=== PATIENT | male | born 1935 | race Caucasian/White ===

== ENCOUNTER → 2018-09-04 | Day surgery (SDC) | payer MEDICARE, BC ==
--- NOTE | 2018-09-02 16:35 | Diagnostic Imaging Report ---
Frontal and lateral views of the chest. September 02, 2018 at 1405 HISTORY: PREOP COMPARISON: None available. DISCUSSION: Soft tissue attenuation partially limits sensitivity of the exam. Lungs: Low lung volumes result in bibasilar vascular crowding, accentuation of the pulmonary interstitial markings, central pulmonary vasculature, and the cardiac silhouette. Allowing for these limitations, the findings are as follows: A patchy peripheral opacity at the left lung base, approximately 2.2 cm. Pleura: No pleural effusion or pneumothorax. Heart and mediastinum: The cardiomediastinal silhouette appears unremarkable. Bones and soft tissues: Straightening of the normal thoracic kyphosis and mild multilevel degenerative disc changes. IMPRESSION: A nonspecific 2.2 cm left basilar peripheral opacity, differential considerations include scarring, atelectasis, or pneumonia in the appropriate setting. Recommend a short-term follow-up in 6-8 weeks to assess for stability versus resolution. Signed by: Dr. Leland Arteaga D.O., M.M.M. on 09/02/2018 4:31 PM
[~2018-09-04] MED LIST: AMITRIPTYLINE H25 MG PO; ATENOLOL50 MG PO; BLOOD PRESSURE MED PO; CEFTRIAXONE SOD 1 GM/NS 50 ML 50 ML IV ONE; CELEBREX200 MG PO; CHLORTHALIDONE25 MG PO; COMBIVENT RESPIM4 GM IH; DEXAMETHASONE SOD PHOS INJ 4 MG/ML VIAL ONE; FENTANYL CITRATE/PF 100MCG/2 ML INJ ONE; FUROSEMIDE INJ 10 MG/ML 4 ML VIAL ONE; GENTAMICIN 80MG/NS 100 ML 200 ML IV ONE; LEVOCETIRIZINE D5 MG PO; LIDOCAINE HCL 2% LOCAL INJ 5 ML SDV VIAL INJ ONE; MYRBETRIQ50 MG PO; OMEPRAZOLE40 MG PO; ONDANSETRON HCL INJ 2MG/ML 2ML 2 MG/ML VIAL ONE; PROPOFOL IV EMULSION 10 MG/ML 20 ML VIAL ONE; SEVOFLURANE INHAL SOLN 250 ML PEN BTL ONE; SIMVASTATIN20 MG PO
--- OUTSIDE RECORDS SUMMARY | 2018-09-04 07:07 | XMS REPORT ---
Author [facility] Address Unknown Phone Unavailable Care Team Providers Care Chief Revenue Officer Name Role Phone Bernie BRANCH Unavailable Unavailable Problems This patient has no known problems. Allergies, Adverse Reactions, Alerts This patient has no known allergies or adverse reactions. Medications This patient has no known medications. Results Test Description Test Time Test Comments Text Results Atomic Results Result Comments CHEST 2 VIEWS 2018-09-02 16:26:00 [place] [address] Patient Name: EVIN ALVA MR #: [id number] : 1935 Age/Sex: 83/M Req #: [id number] Adm Physician: Ordered by: FRANKI BRANCH MD Report #: [id number] Location: OR Room/Bed: Procedure: [id number] DX/CHEST 2 VIEWS Exam Date: 09/02/18 Exam Time: 1423 REPORT STATUS: Signed Frontal and lateral views of the chest. September 02, 2018 at 1405 HISTORY: PREOP COMPARISON: None available. DISCUSSION: Soft tissue attenuation partially limits sensitivity of the exam. Lungs: Low lung volumes result in bibasilar vascular crowding, accentuation of the pulmonary interstitial markings, central pulmonary vasculature, and the cardiac silhouette. Allowing for these limitations, the findings are as follows: A patchy peripheral opacity at the left lung base, approximately 2.2 cm. Pleura: No pleural effusion or pneumothorax. Heart and mediastinum: The cardiomediastinal silhouette appears unremarkable. Bones and soft tissues: Straightening of the normal thoracic kyphosis and mild multilevel degenerative disc changes. IMPRESSION: A nonspecific 2.2 cm left basilar peripheral opacity, differential considerations include scarring, atelectasis, or pneumonia in the appropriate setting. Recommend a short-term follow-up in 6-8 weeks to assess for stability versus resolution. Signed by: Dr. Marlon Arteaga D.O., M.M.M. on 09/02/2018 4:31 PM Dictated By: MARLON ARTEAGA DO 1631 Transcribed By: OSCAR on 09/02/18 1631 COPY TO: FRANKI BRANCH MD
--- OUTSIDE RECORDS SUMMARY | 2018-09-04 07:07 | XMS REPORT | Clinical Summary ---
Author Author [facility] Address Unknown Phone Unavailable Care Team Providers Care [facility] [employer] Name Role Phone Jane Arrieta MD PCP Allergies Comments Active Allergy Reactions Severity Noted Date No Known Drug Allergies 11/05/2015 Medications End Date Status Medication Sig Dispensed Refills Start Date Active DULoxetine (CYMBALTA) 60 TAKE 1 90 capsule 1 MG capsuleIndications: CAPSULE BY 8 Depression MOUTH DAILY Active buPROPion SR (WELLBUTRIN TAKE 1 TABLET 90 tablet 0 SR) 100 MG 12 hr BY MOUTH AT 8 tabletIndications: BEDTIME Depression Active chlorthalidone (HYGROTEN) TAKE 1 TABLET 90 tablet 0 25 MG tabletIndications: BY MOUTH 8 Essential hypertension DAILY 06/04/2019 Active furosemide (LASIX) 20 mg Take 1 tablet 60 tablet 11 tabletIndications: Pedal (20 mg total) 8 edema by mouth 2 (two) times a day. Active fluticasone (FLONASE 2 sprays (100 15.8 mL 0 ALLERGY RELIEF) 50 mcg total) by 8 mcg/actuation nasal Each Nare sprayIndications: route daily. Seasonal allergic rhinitis due to pollen Active omeprazole (PriLOSEC) 20 Take 1 90 capsule 0 MG capsuleIndications: capsule (20 8 Gastroesophageal reflux mg total) by disease, esophagitis mouth daily. presence not specified Active atenolol (TENORMIN) 25 MG Take 1 tablet 90 tablet 3 tabletIndications: (25 mg total) 8 Essential hypertension by mouth daily. Active celecoxib (CeleBREX) 100 TAKE ONE 60 capsule 0 MG capsule CAPSULE BY 8 MOUTH TWICE A DAY Active simvastatin (ZOCOR) 20 MG TAKE 1 TABLET 90 tablet 1 tabletIndications: BY MOUTH 9 Hypercholesteremia NIGHTLY Active amitriptyline (ELAVIL) 25 0 MG tablet 9 03/01/2018 Discontinued chlorthalidone (HYGROTEN) Take 1 tablet 90 tablet 1 25 MG tabletIndications: by mouth 7 Essential hypertension daily 01/15/2018 Discontinued DULoxetine (CYMBALTA) 60 TAKE 1 90 capsule 1 MG capsuleIndications: CAPSULE BY 7 Depression MOUTH DAILY 03/01/2018 Discontinued doxazosin (CARDURA) 4 MG Take 1 tablet 90 tablet 1 tabletIndications: by mouth 7 Essential hypertension daily 03/01/2018 Discontinued omeprazole (PriLOSEC) 20 TAKE 1 90 capsule 1 MG capsuleIndications: CAPSULE BY 7 Gastroesophageal reflux MOUTH DAILY disease, esophagitis presence not specified 03/01/2018 Discontinued buPROPion SR (WELLBUTRIN TAKE 1 TABLET 90 tablet 1 SR) 100 MG 12 hr BY MOUTH AT 7 tabletIndications: BEDTIME Depression 11/16/2017 Discontinued simvastatin (ZOCOR) 20 MG TAKE 1 TABLET 90 tablet 1 tabletIndications: BY MOUTH 7 Hypercholesteremia NIGHTLY 10/17/2017 Discontinued meloxicam (MOBIC) 15 mg TAKE 1 TABLET 90 tablet 1 tabletIndications: BY MOUTH 7 Arthritis DAILY 03/01/2018 Discontinued atenolol (TENORMIN) 25 MG TAKE 1 TABLET 90 tablet 1 tabletIndications: BY MOUTH 7 Essential hypertension DAILY 06/04/2018 Discontinued meloxicam (MOBIC) 15 mg TAKE 1 TABLET 90 tablet 1 tabletIndications: BY MOUTH 8 Arthritis DAILY 08/23/2018 Discontinued simvastatin (ZOCOR) 20 MG TAKE 1 TABLET 90 tablet 1 tabletIndications: BY MOUTH 8 Hypercholesteremia NIGHTLY 06/04/2018 Discontinued doxazosin (CARDURA) 4 MG TAKE 1 TABLET 90 tablet 0 tabletIndications: BY MOUTH 8 Essential hypertension DAILY 07/30/2018 Discontinued omeprazole (PriLOSEC) 20 TAKE 1 90 capsule 0 MG capsuleIndications: CAPSULE BY 8 Gastroesophageal reflux MOUTH DAILY disease, esophagitis presence not specified 07/30/2018 Discontinued atenolol (TENORMIN) 25 MG TAKE 1 TABLET 90 tablet 0 tabletIndications: BY MOUTH 8 Essential hypertension DAILY 07/04/2018 mirabegron (MYRBETRIQ) 50 Take 1 tablet 30 tablet 3 mg tablet extended (50 mg total) 8 release 24 hrIndications: by mouth Urge incontinence daily for 30 days. 08/09/2018 Discontinued celecoxib (CeleBREX) 100 Take 1 60 capsule 0 MG capsule capsule (100 8 mg total) by mouth 2 (two) times a day for 30 days. Active Problems Problem Noted Date Benign prostatic hyperplasia with urinary obstruction 11/05/2015 Overview: Benign Prostatic Hypertrophy with Outflow Obstruction Bilateral hearing loss 11/05/2015 Chronic back pain 11/05/2015 Hypercholesteremia 11/05/2015 Systolic essential hypertension 11/05/2015 Vertigo 11/05/2015 Vitreous degeneration 07/25/2012 Pseudophakia 07/25/2012 Epiretinal membrane 07/25/2012 Encounters Care Team Description Date Type Specialty Kannan Nielsen MD Abnormal liver function test (Primary Dx); NAFLD (nonalcoholic fatty liver disease); Family history of colon cancer; Gastroesophageal reflux disease without esophagitis; Morbid obesity (HCC); Metabolic syndrome 09/03/2018 Office Visit Gastroenterology John Christie MD Hypercholesteremia 08/23/2018 Refill Family Medicine Alexandre Branch MD Elevated prostate specific antigen (PSA); Enlarged prostate with urinary obstruction; Weak urinary stream 08/22/2018 Hospital Radiology Encounter Baylee Russo PA 08/09/2018 Refill Family Medicine Alexandre Branch MD Elevated prostate specific antigen (PSA) (Primary Dx); Enlarged prostate with urinary obstruction; Weak urinary stream 08/05/2018 Transcribe Access Orders Thi Flynn MA Gastroesophageal reflux disease, esophagitis presence not specified; Essential hypertension 07/30/2018 Refill Family Medicine Randy Felix MD CV LEFT HEART CATH LV GRAM WITH CORS [33270 (CPT)] 07/15/2018 Surgery Procedural Cardiology Randy Felix MD Abnormal ballistocardiogram; Shortness of breath 07/15/2018 Hospital Procedural Cardiology Encounter Rafaela, Baylee J., PA Flu vaccine need (Primary Dx); Need for pneumococcal vaccine; Urge incontinence; Chronic obstructive pulmonary disease, unspecified COPD type (HCC); Morbid (severe) obesity due to excess calories (HCC); Essential hypertension; Pedal edema; Seasonal allergic rhinitis due to pollen 06/04/2018 Office Visit Family Medicine John Christie MD Essential hypertension (Primary Dx); Hypercholesteremia; Impaired fasting glucose 03/07/2018 Office Visit Family Medicine John Christie MD Essential hypertension (Primary Dx); Depression; Gastroesophageal reflux disease, esophagitis presence not specified 03/01/2018 Refill Family Medicine John Christie MD Depression (Primary Dx) 01/15/2018 Refill Family Medicine John Christie MD Chronic midline low back pain with bilateral sciatica 01/03/2018 Hospital Radiology Encounter Zohra Lawton MA Chronic midline low back pain with bilateral sciatica (Primary Dx) 01/01/2018 Telephone Family Medicine John Christie MD Essential hypertension (Primary Dx) 12/06/2017 Office Visit Family Medicine John Christie MD Hypercholesteremia (Primary Dx) 11/16/2017 Refill Family Medicine John Christie MD Arthritis (Primary Dx) 10/17/2017 Refill Family Medicine after 09/03/2017 Immunizations Name Dates Previously Given Next Due FLUZONE HIGH-DOSE PF 06/04/2018, 07/19/2016 Pneumococcal Conjugate 06/04/2018 13-Valent Pneumococcal 07/19/2016 Polysaccharide Td, Unspecified 06/20/2013 Family History Medical History Relation Name Comments Cancer Father colon Arthritis Mother Stroke Mother Diabetes Sister Relation Name Status Comments Father Mother Sister Social History Date Tobacco Use Types Packs/Day Years Used Quit: 05/1980 Former Smoker Cigarettes 1 35 Smokeless Tobacco: Never Used Tobacco Cessation: Counseling Given: No Alcohol Use Drinks/Week oz/Week Comments No Sex Assigned at Date Recorded Not on file Industry Job Start Date Occupation Not on file Not on file Not on file Travel End Travel History Travel Start No recent travel history available. Last Filed Vital Signs Time Taken Vital Sign Reading 09/03/2018 1:07 PM ASSOCIATE PROGRAMMER ANALYST Blood Pressure 144/83 09/03/2018 1:07 PM ASSOCIATE PROGRAMMER ANALYST Pulse 92 09/03/2018 1:07 PM ASSOCIATE PROGRAMMER ANALYST Temperature 36.3 C (97.3 F) 09/03/2018 1:07 PM ASSOCIATE PROGRAMMER ANALYST Respiratory Rate 18 07/15/2018 4:00 PM ASSOCIATE PROGRAMMER ANALYST Oxygen Saturation 95% - Inhaled Oxygen - Concentration 09/03/2018 1:07 PM ASSOCIATE PROGRAMMER ANALYST Weight 129 kg (283 lb 9.6 oz) 09/03/2018 1:07 PM ASSOCIATE PROGRAMMER ANALYST Height 172.7 cm (5' 8") 09/03/2018 1:07 PM ASSOCIATE PROGRAMMER ANALYST Body Mass Index 43.12 Plan of Treatment Care Team Description Date Type Specialty Kannan Nielsen MD [address] [place] [address] [address] [place] [address] 09/10/2018 Appointment Radiology Kannan Nielsen MD [address] [place] [address] [address] [place] [address] 12/10/2018 Office Visit Gastroenterology Health Maintenance Due Date Last Done Comments SHINGLES VACCINES (1 of 02/28/2019 Postponed from 1987 2) (Patient Refused) PNEUMOCOCCAL Completed 07/19/2016 POLYSACCHARIDE VACCINE AGE 65 AND OVER INFLUENZA VACCINE Completed 06/04/2018, 07/19/2016 PNEUMOCOCCAL-13 Completed 06/04/2018 Implants Device Identifier Shelf Expiration Date Model / Serial / Lot Implanted Type Area Manufactur er 03/19/2020 [id number] / / [id number] Device Vasclr Clsr Baln Cath 10ml Cardiovasc N/A: N/A CARDINAL Lkng Syr 6fr 7fr [facility] [id number] Implants Implanted: 07/15/2018 (Quantity not on file) 12/19/2025 [id number] ENT / / [id number] Grommet Armstrng Bvld 1.14mm Surgical Right: Ear OLYMPUS Flropl[employer]c - [id number] Implants; CANDIDO Implanted: Qty: 1 on 06/20/2017 by [employer]; INC Charles Barros MD Extenders; Surgical Wires 10/31/2025 [id number] ENT / / [id number] Grommet Armstrng Bvld 1.14mm Surgical Left: Ear OLYMPUS Flroplstc - [id number] Implants; CANDIDO Implanted: Qty: 1 on 06/20/2017 by [employer]; Charles Del Cid MD Extenders; Surgical Wires Procedures Comments Procedure Name Priority Date/Time Associated Diagnosis US PROSTATE Routine 08/22/2018 Elevated prostate 1:02 PM ASSOCIATE PROGRAMMER ANALYST specific antigen (PSA) Enlarged prostate with urinary obstruction Weak urinary stream CV LEFT HEART CATH LV Routine 07/15/2018 Abnormal GRAM WITH CORS 11:50 AM ASSOCIATE PROGRAMMER ANALYST ballistocardiogram Shortness of breath ECG 12-LEAD Routine 07/15/2018 9:19 AM ASSOCIATE PROGRAMMER ANALYST HEMOGLOBIN A1C Routine 03/07/2018 Impaired fasting glucose 9:19 AM CDT COMPREHENSIVE METABOLIC Routine 03/07/2018 Essential hypertension PANEL 9:19 AM CDT LIPID PANEL Routine 03/07/2018 Hypercholesteremia 9:19 AM CDT MRI LUMBAR SPINE WO Routine 01/03/2018 Chronic midline low back CONTRAST 9:16 AM CDT pain with bilateral sciatica after 09/03/2017 Results * US Prostate (08/22/2018 1:02 PM ASSOCIATE PROGRAMMER ANALYST) Narrative Performed At Procedure: US PROSTATE [facility] REFERRING PHYSICIAN: ALEXANDRE BRANCH HISTORY: R97.20 Elevated prostate specific antigen (PSA), N40.1 Benign prostatic hyperplasia with lower urinary tract symptoms, R97.2N40.1R39.12N49.1 COMPARISON: None TECHNIQUE: Transrectal ultrasound was performed of the prostate gland. Multiple sagittal and transverse grayscale images were acquired. FINDINGS: Enlargement and heterogeneous echotexture are seen of the prostate gland. Prostate gland measures approximately 8.9 x 7.5 x 7.6 cm. The prostate volume is 2 69 cc. Patchy consultations are seen within the central aspect of the prostate gland. Approximately 4 mm cyst is seen within the left side of the prostate gland. IMPRESSION: Prostatic hypertrophy with heterogeneous echotexture. [id number] Procedure Note Interface, Radiology Results Incoming - 08/22/2018 3:47 PM ASSOCIATE PROGRAMMER ANALYST Procedure: US PROSTATE REFERRING PHYSICIAN: ALEXANDRE BRANCH HISTORY: R97.20 Elevated prostate specific antigen (PSA), N40.1 Benign prostatic hyperplasia with lower urinary tract symptoms, R97.2 N40.1 R39.12 N49.1 COMPARISON: None TECHNIQUE: Transrectal ultrasound was performed of the prostate gland. Multiple sagittal and transverse grayscale images were acquired. FINDINGS: Enlargement and heterogeneous echotexture are seen of the prostate gland. Prostate gland measures approximately 8.9 x 7.5 x 7.6 cm. The prostate volume is 2 69 cc. Patchy consultations are seen within the central aspect of the prostate gland. Approximately 4 mm cyst is seen within the left side of the prostate gland. IMPRESSION: Prostatic hypertrophy with heterogeneous echotexture. [id number] Performing Organization Address [facility] Phone Number [facility] [address] [place] [address] * Cv organic lab worker procedure (07/15/2018 11:50 AM ASSOCIATE PROGRAMMER ANALYST) Narrative Performed At Performing Organization Address [facility] Phone Number [facility] [phone] [place] [address] * ECG 12 lead (07/15/2018 9:19 AM ASSOCIATE PROGRAMMER ANALYST) Ventricular rate 81 [facility] Atrial rate 81 [facility] MO interval 156 [facility] QRSD interval 100 [facility] QT interval 404 [facility] QTC interval 469 [facility] P axis 1 50 [facility] QRS axis 1 38 [facility] T wave axis 5 [facility] EKG impression Sinus rhythm with premature [facility] atrial complexes-Nonspecific ST abnormality-Abnormal ECG-In automated comparison with ECG of 15-JUN-2017 10:13,-premature atrial complexes are now present-MO interval has decreased-ST no longer elevated in Inferior leads-Nonspecific T wave abnormality now evident in Inferior leads- Narrative Performed At Performing Organization Address [facility] Phone Number [facility] [address] [place] [address] * Hemoglobin A1c (03/07/2018 9:19 AM CDT) Hemoglobin A1C 5.8 (H) <5.7 % of total Hgb [facility] Comment: [place] For someone without known diabetes, a hemoglobin A1c value between 5.7% and 6.4% is consistent with prediabetes and should be confirmed with a follow-up test. For someone with known diabetes, a value <7% indicates that their diabetes is well controlled. A1c targets should be individualized based on duration of diabetes, age, comorbid conditions, and other considerations. This assay result is consistent with an increased risk of diabetes. Currently, no consensus exists regarding use of hemoglobin A1c for diagnosis of diabetes for children. Specimen Blood Narrative Performed At FASTING:NO [facility] FASTING: NO Resulting Agency Comment Performing Organization Information: Site ID: [id number] Name: [facility] Address: [address] [place] [id number] Director: Candelaria Ramirez Performing Organization Address [facility] Phone Number [facility] [place] [address] * Lipid panel (03/07/2018 9:19 AM CDT) Cholesterol, total 130 <200 mg/dL [facility] HDL cholesterol 45 >40 mg/dL [facility] Triglycerides 108 <150 mg/dL [facility] LDL cholesterol 66 mg/dL (calc) [employer] [facility] Comment: [place] Reference range: <100 Desirable range <100 mg/dL for primary prevention; <70 mg/dL for patients with CHD or diabetic patients with > or=2 CHD risk factors. LDL-C is now calculated using the Rajeev-Jamia calculation, which is a validated novel method providing better accuracy than the Friedewald equation in the estimation of LDL-C. Rajeev SS et al. KELLY. 2013;310(19): 3439-0045 (http://education.Factery.Web Performance/faq/ZHP855) Cholesterol/HDL ratio 2.9 <5.0 (calc) [facility] Non-HDL cholesterol 85 <130 mg/dL (calc) [employer] Comment: [place] For patients with diabetes plus 1 major ASCVD risk factor, treating to a non-HDL-C goal of <100 mg/dL (LDL-C of <70 mg/dL) is considered a therapeutic option. Specimen Blood Narrative Performed At FASTING:NO [facility] FASTING: NO Resulting Agency Comment Performing Organization Information: Site ID: [id number] Name: [facility] Address: [address] [place] [id number] Director: Candelaria Ramirez Performing Organization Address [facility] Phone Number [facility] [place] [address] * Comprehensive metabolic panel (03/07/2018 9:19 AM CDT) Glucose 99 65 - 139 mg/dL [employer] Comment: [place] Non-fasting reference interval BUN, whole blood 24 7 - 25 mg/dL [facility] [place] Creatinine 1.15 (H) 0.70 - 1.11 mg/dL [employer] Comment: [place] For patients >49 years of age, the reference limit for Creatinine is approximately 13% higher for people identified as -Marshallese. EGFR Non-Afr. Marshallese 60 > OR=60 mL/min/1.73m2 [facility] [place] EGFR 69 > OR=60 mL/min/1.73m2 [facility] [place] BUN/creatinine ratio 21 6 - 22 (calc) [facility] [place] Sodium 132 (L) 135 - 146 mmol/L [facility] [place] Potassium 4.3 3.5 - 5.3 mmol/L [employer] [place] Chloride 96 (L) 98 - 110 mmol/L [facility] [place] CO2 32 (H) 20 - 31 mmol/L [facility] [place] Calcium 9.3 8.6 - 10.3 mg/dL [facility] [place] Protein 6.4 6.1 - 8.1 g/dL [facility] [place] Albumin, S 4.1 3.6 - 5.1 g/dL [facility] [place] Globulin, total 2.3 1.9 - 3.7 g/dL (calc) [facility] [place] Albumin/globulin ratio 1.8 1.0 - 2.5 (calc) [facility] [place] Total bilirubin 0.6 0.2 - 1.2 mg/dL [employer] [place] Alkaline phosphatase 58 40 - 115 U/L [employer] [place] AST 16 10 - 35 U/L [employer] [place] ALT 15 9 - 46 U/L [employer] [place] Specimen Blood Narrative Performed At FASTING:NO [facility] FASTING: NO Resulting Agency Comment Performing Organization Information: Site ID: [id number] Name: [facility] Address: [address] [place] [address] Director: Candelaria Ramirez Performing Organization Address City/State/Zipcode Phone Number [employer] [address] [address] * MRI Lumbar Spine Wo Contrast (01/03/2018 9:16 AM CDT) Narrative Performed At [facility] EXAMINATION:MRI LUMBAR SPINE WO CONTRAST CLINICAL HISTORY:M54.41 Lumbago with sciaticaright side, M54.42 Lumbago with sciaticaleft side, lower back pain with sciatica bilaterally COMPARISON:February 22, 2015 FINDINGS: Lowermost functional disc space is assumed to be L5-S1. Mild retrolisthesis at L1-2, L2-3, L3-4, L4-5 and L5-S1. Advanced multilevel disc space narrowing and endplate degenerative changes. No suspicious focal bone marrow lesions. Incidental vertebral body hemangioma at L2. Visualized spinal cord is normal in appearance. L1-2: No central canal narrowing. Facet arthropathy and osteophytosis causes mild narrowing of the left foramen. L2-3: Laminectomy changes. No canal narrowing. Retrolisthesis, facet arthropathy and posterior disc bulge causes mild narrowing of the foramina, left greater than right. L3-4: Laminectomy changes. No central canal narrowing. Bilateral facet arthropathy, posterior disc bulge and osteophytosis causes moderate right and mild left foraminal narrowing. L4-5: Laminectomy changes. No central canal narrowing. Facet arthropathy and osteophytosis causes mild to moderate narrowing of the foramina bilaterally. L5-S1: Laminectomy changes. No central canal narrowing. Facet arthropathy, posterior disc bulge and osteophytosis causes moderate left and mild right foraminal narrowing. IMPRESSION: Interval laminectomy changes at L2 and L3. Stable laminectomy changes at L4 and L5. No residual central canal narrowing the lumbar spine. Mild to moderate multilevel foraminal narrowing. [id number] Procedure Note Hm Interface, Radiology Results Incoming - 01/03/2018 9:43 AM CDT EXAMINATION: MRI LUMBAR SPINE WO CONTRAST CLINICAL HISTORY: M54.41 Lumbago with sciatica right side, M54.42 Lumbago with sciatica left side, lower back pain with sciatica bilaterally COMPARISON: February 22, 2015 FINDINGS: Lowermost functional disc space is assumed to be L5-S1. Mild retrolisthesis at L1-2, L2-3, L3-4, L4-5 and L5-S1. Advanced multilevel disc space narrowing and endplate degenerative changes. No suspicious focal bone marrow lesions. Incidental vertebral body hemangioma at L2. Visualized spinal cord is normal in appearance. L1-2: No central canal narrowing. Facet arthropathy and osteophytosis causes mild narrowing of the left foramen. L2-3: Laminectomy changes. No canal narrowing. Retrolisthesis, facet arthropathy and posterior disc bulge causes mild narrowing of the foramina, left greater than right. L3-4: Laminectomy changes. No central canal narrowing. Bilateral facet arthropathy, posterior disc bulge and osteophytosis causes moderate right and mild left foraminal narrowing. L4-5: Laminectomy changes. No central canal narrowing. Facet arthropathy and osteophytosis causes mild to moderate narrowing of the foramina bilaterally. L5-S1: Laminectomy changes. No central canal narrowing. Facet arthropathy, posterior disc bulge and osteophytosis causes moderate left and mild right foraminal narrowing. IMPRESSION: Interval laminectomy changes at L2 and L3. Stable laminectomy changes at L4 and L5. No residual central canal narrowing the lumbar spine. Mild to moderate multilevel foraminal narrowing. [facility]-[id number] Performing Organization Address City/State/Zipcode Phone Number [facility] [address] [place] [address] after 09/03/2017 Insurance Payer Benefit Subscriber ID Type Phone Address Plan / Group MEDICARE MEDICARE xxxxxxxxxxx Medicare [place], [place] PART A AND B BCBS BCBS xxxxxxxxxxxx Indemnity PAR/TRAD PLAN Advance Directives Patient has advance care planning documents on file. For more information, hans barboza contact: Jamaal Edwards [address] [place] [address]
[2018-09-04 13:10] VITALS: BP 149/79
--- NOTE | 2018-09-04 13:19 | Diagnostic Imaging Report ---
US guidance for prostate biopsy CPT CODE: 32083 HISTORY: Prostate biopsy TECHNIQUE: Ultrasound guidance was provided to Dr. Alexandre Pederson for the purposes of a prostate biopsy. COMPARISON: None. FINDINGS: Prostate gland: Measures 5.1 x 7.6 x 7.7 cm (volume is 155 cc). Visualized portions demonstrate no evidence of mass in the transition or peripheral zones. No significant burden of calcification. Visualized portions of the seminal vesicles are unremarkable. IMPRESSION: As above. Signed by: Dr. Irene Landa MD on 09/04/2018 1:16 PM
--- NOTE | 2018-09-04 15:41 | Operative Report ---
DATE OF PROCEDURE: September 04, 2018 PREOPERATIVE DIAGNOSES 1. BPH. 2. Abnormal prostatic-specific antigen. POSTOPERATIVE DIAGNOSES 1. BPH. 2. Abnormal prostatic-specific antigen. 3. Massive prostatic hypertrophy, 160 mL. OPERATIONS 1. Transrectal ultrasound of the prostate. 2. Ultrasound-guided needle biopsies. 3. Cystourethroscopy. 4. Motta catheter placement. ANESTHETIC: General. RETAIL KEY HOLDER: Dr. Pb Gallegos. Mr. Cordero is an 83-year-old male who presented with the chief complaint of lower urinary tract obstructive symptoms and elevated PSA. Rectal exam showed an enlarged prostate gland that was over 150 g. This patient was placed in the table in the lithotomy position, and transrectal ultrasound of the prostate was performed. The prostate measured 7 x 7 cm x 5.07 x 7.6 cm with a total volume of 155.28 mL. There were no hypoechoic area, but there was some calcification with post calcification shadowing. Transrectal ultrasound-guided needle biopsies were obtained, and multiple biopsies were obtained from the prostate to map it for any multifocal carcinoma. This patient was then prepped and draped in a sterile manner after the procedure of the biopsy was done. A #23-[place] cystoscope was used, and cystourethroscopy was performed. It was noted that the urethra was normal. The prostatic urethra was about 7-8 cm long, trilobar and occlusive. Cystoscopy was then performed using both right angle and the 4-0 oblique lens, and the bladder mucosa was normal with no evidence of gross tumor, pathology or any palpable lesions. The bladder wall was moderately to markedly trabeculated. Both urethral orifices were seen and were in normal position, configuration and efflux. The cystoscope was removed. A #18-[place] Motta catheter was placed. There is some concern that this patient may go into retention following the biopsies. He is to return to the office in about 1 week. Discharge medication was Cipro 500 mg 1 twice a day for 1 week. Ultracet tablet 1 every 6-8 hours p.r.n. and was given 30. He is to return to the office in 1 week. Job#: [id number]
== END | disposition home or self-care (01) ==
LOC: OR 07:03
PROVIDERS: ATTEND Specialist
DX: N40.1 Benign prostatic hyperplasia with lower urinary tract symptoms (principal); N13.8 Other obstructive and reflux uropathy; R97.20 Elevated prostate specific antigen [PSA]; N41.1 Chronic prostatitis; N32.89 Other specified disorders of bladder; G47.33 Obstructive sleep apnea (adult) (pediatric); I10 Essential (primary) hypertension; K21.9 Gastro-esophageal reflux disease without esophagitis; Z01.810 Encounter for preprocedural cardiovascular examination; Z01.818 Encounter for other preprocedural examination; Z87.891 Personal history of nicotine dependence
CPT/HCPCS: 55700; 71046; 76872; 88305; 93005; J0696; J1100; J1580; J1940; J2001; J2405; J2704; 76998